=== PATIENT | female | born 2000 | race Caucasian/White ===

== ENCOUNTER 2022-03-01 17:57 | Observation (INO) | payer MEDICAID ==
[~2022-03-01] VITALS: Ht 157.5 cm; Wt 84.4 kg
[2022-03-01] MEDS ORDERED: PRETAB PO (18:33)
[2022-03-01 18:41] VITALS: BP 117/72
[2022-03-01] MEDS ORDERED: MORPHINE SULFATE 10 MG/ML VIAL IM PRN (19:10)
[2022-03-01] MEDS ORDERED: ONDANSETRON 4 MG/2 ML VIAL IM PRN (19:45)
== END 2022-03-01 21:16 | disposition home or self-care (01) ==
LOC: MLD 17:57
PROVIDERS: ADMIT Obstetrics & Gynecology; ATTEND Obstetrics & Gynecology
DX: O62.9 Abnormality of forces of labor, unspecified (principal); Z20.822 Contact with and (suspected) exposure to COVID-19; Z3A.39 39 weeks gestation of pregnancy
CPT/HCPCS: 87426; G0378; 59025; 81000

== ENCOUNTER 2022-03-04 09:39 | Observation (INO) | payer MEDICAID ==
[~2022-03-04] VITALS: Ht 157.5 cm; Wt 84.4 kg
[~2022-03-04 09:39] MED LIST: PRETAB PO
[2022-03-04 10:16] VITALS: BP 130/74
== END 2022-03-04 10:40 | disposition home or self-care (01) ==
LOC: MLD 09:39
PROVIDERS: ADMIT Obstetrics & Gynecology; ATTEND Obstetrics & Gynecology
DX: O26.893 Other specified pregnancy related conditions, third trimester (principal); Z20.822 Contact with and (suspected) exposure to COVID-19; R10.30 Lower abdominal pain, unspecified; O24.419 Gestational diabetes mellitus in pregnancy, unspecified control; Z3A.39 39 weeks gestation of pregnancy
CPT/HCPCS: 87426; G0378; G0379

== ENCOUNTER 2022-03-07 09:02 | Inpatient (IN) | payer MEDICAID ==
[~2022-03-07] VITALS: Ht 157.5 cm; Wt 84.4 kg
--- NOTE | 2022-03-07 09:17 | NUR ---
PATIENT HAS BEEN SCREENED AND CATEGORIZED LOW NUTRITION RISK. PATIENT WILL BE SEEN WITHIN 7 DAYS OF ADMISSION. 03/14/22 REVIEWED BY [address]
[2022-03-07] MEDS ORDERED: METHYLERGONOVINE 0.2 MG/ML AMP IM PRN (09:50)
[2022-03-07] MEDS ORDERED: CARBOPROST 250 MCG/ML AMP IM PRN (09:50)
[2022-03-07] MEDS ORDERED: ONDANSETRON 4 MG/2 ML VIAL IVP PRN (09:55)
[2022-03-07] MEDS ORDERED: MORPHINE SULFATE 5 MG/ML VIAL IVP PRN (09:55)
[2022-03-07 10:52] LABS: BASOPHILS % (AUTO) 0.4 % (0.0-2.0); EOSINOPHILS # (AUTO) 0.1 K/uL (0-0.4); EOSINOPHILS % (AUTO) 0.5 % (0.0-4.0); HEMATOCRIT 36.3 % (36-48); HEMOGLOBIN 12.3 g/dL (12.0-16.0); LYMPHOCYTES # (AUTO) 2.4 K/uL (2.5-16.5); LYMPHOCYTES % (AUTO) 26.4 % (20.5-51.1); MEAN CORPUSCULAR HEMOGLOBIN 27 pg (27-31); MEAN CORPUSCULAR HGB CONC 34 g/dL (33-37); MEAN CORPUSCULAR VOLUME 78.8 fL (80-94); MONOCYTES # (AUTO) 0.6 K/uL (0.8-1.0); MONOCYTES % (AUTO) 6.5 % (1.7-9.3); NEUTROPHILS # (AUTO) 6.1 K/uL (1.8-7.7); NEUTROPHILS % (AUTO) 66.2 % (42.2-75.2); PLATELET COUNT (AUTO) 128 K/uL (140-450); RED BLOOD CELL COUNT(AUTO) 4.61 MIL/uL (4.20-5.40); RED CELL DISTRIBUTION WIDTH 15.3 % (11.6-13.7); WHITE BLOOD COUNT (AUTO) 9.3 K/uL (4.8-10.8)
[2022-03-07 11:14] LABS: ALBUMIN 2.3 g/dL (3.4-5.0); ANION GAP 8.9 (8-16); CARBON DIOXIDE 25.5 mmol/L (21-32); CREATININE 0.6 mg/dL (0.6-1.3); POTASSIUM 3.4 mmol/L (3.5-5.1); TOTAL BILIRUBIN 0.2 mg/dL (0.0-1.0)
[2022-03-07 11:36] LABS: PROTHROMBIN TIME 9.3 secs (10.8-13.4)
[2022-03-07 11:41] LABS: APPEARANCE,URINE SL CLOUDY (CLEAR); BILIRUBIN,URINE NEGATIVE (NEGATIVE); BLOOD, URINE NEGATIVE (NEGATIVE); COLOR,URINE YELLOW (YELLOW); LEUKOCYTE ESTERASE ,URINE 1+ (NEGATIVE); NITRITE, URINE NEGATIVE (NEGATIVE); UGLUCOSE NEGATIVE (NEGATIVE)
[2022-03-07] MEDS ORDERED: OXYTOCIN 20 UNITS in LACTATED RINGERS 1,000 ML IV SCH (11:55)
[2022-03-07 12:00] LABS: RBC,URINE 0-5 /HPF (0-5)
[2022-03-07] MEDS: LACTATED RINGERS 1,000 ML IV SCH ×3 (13:41→22:09)
[2022-03-07] MEDS ORDERED: OXYTOCIN 20 UNITS/LR PREMIX 1,000 ML IV ONE (13:45)
[2022-03-07] MEDS ORDERED: POTASSIUM CHLORIDE 10 MEQ TABER PO ONE ×2 (19:25→20:33)
[2022-03-07] MEDS ORDERED: MORPHINE SULFATE 10 MG/ML VIAL ONE (21:02)
[2022-03-07 21:07] VITALS: BP 111/75
[2022-03-07] MEDS ORDERED: fentaNYL citrate 0.05 MG/ML VIAL ONE (21:53)
[2022-03-07] MEDS ORDERED: ROPIVACAINE 0.2%/NS PREMIX 200 ML EPI ONE (21:54)
[2022-03-08] MEDS: LACTATED RINGERS 1,000 ML IV SCH (06:08)
[2022-03-08] MEDS ORDERED: OXYTOCIN 10 UNITS/ML VIAL IM PRN (14:30)
[2022-03-08] MEDS ORDERED: MEASLES, MUMPS, AND RUBELLA 1 VIAL SQVAC ONE (14:30)
[2022-03-08] MEDS ORDERED: bisacodyL 5 MG TABEC PO PRN (14:30)
[2022-03-08] MEDS ORDERED: METHYLERGONOVINE 0.2 MG/ML AMP IM PRN ×2 (14:30→18:45)
[2022-03-08] MEDS ORDERED: BENZOCAINE/MENTHOL 20%-0.5% 60 GM CAN TP PRN (14:30)
[2022-03-08] MEDS ORDERED: DOCUSATE SODIUM 100 MG GELCAP PO PRN (14:30)
[2022-03-08] MEDS ORDERED: METHYLERGONOVINE 0.2 MG TAB PO PRN (14:30)
[2022-03-08] MEDS ORDERED: MEASLES, MUMPS, AND RUBELLA 1 VIAL SQVAC SCH (15:00)
[2022-03-08] MEDS: IBUPROFEN 800 MG TAB PO PRN (21:14)
[2022-03-09 07:47] LABS: HEMATOCRIT 31.3 % (36-48); HEMOGLOBIN 10.1 g/dL (12.0-16.0)
[2022-03-09] MEDS: IBUPROFEN 800 MG TAB PO PRN (11:16)
== END 2022-03-10 11:20 | disposition home or self-care (01) | DRG 560 ==
LOC: MLD 09:02 → MFCC 03-08 13:27
PROVIDERS: ADMIT Obstetrics & Gynecology; ATTEND Obstetrics & Gynecology
PROC: 10E0XZZ Delivery of Products of Conception, External Approach (ICD-10-PCS; principal; 2022-03-08)
PROC: 0UQGXZZ Repair Vagina, External Approach (ICD-10-PCS; 2022-03-08)
DX: O71.4 Obstetric high vaginal laceration alone (principal); Z37.0 Single live birth; D64.9 Anemia, unspecified; Z20.822 Contact with and (suspected) exposure to COVID-19; Z3A.39 39 weeks gestation of pregnancy; O90.81 Anemia of the puerperium
CPT/HCPCS: 36415; 51702; 59409; 76815; 80053; 81001; 84132; 85018; 85025; 85610; 85730; 86592; 86886; 86900; 86901; 87086; J2270; J2405; J2590; J2795; J3010; J7120; Q0092